=== PATIENT | male | born 1965 | race Caucasian/White ===

== ENCOUNTER 2019-12-23 22:34 | Inpatient (IN) | payer OTHER ==
[2019-12-23] MEDS ORDERED: Diltiazem HCl 125 MG, Admixture Fee 1 EACH in Sodium Chloride 0.9% 100 ML IVPB SCH (23:00)
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
[2019-12-23] MEDS ORDERED: Ondansetron PF 4 MG/2 ML Vial IVP PRN (23:49)
[2019-12-23] MEDS ORDERED: Ondansetron ODT 4 MG TAB PO PRN (23:49)
[2019-12-23] MEDS ORDERED: Acetaminophen 650 MG Suppository PR PRN (23:49)
[2019-12-23] MEDS ORDERED: Acetaminophen 325 MG TAB PO PRN (23:49)
[2019-12-24] MEDS ORDERED: Diltiazem 125 MG in Sodium Chloride 0.9% 100 ML IVPB SCH (00:15)
[2019-12-24] MEDS ORDERED: Lactated Ringer's 1,000 ML IV SCH ×2 (00:15→01:15)
[2019-12-24 00:17] LABS: Hemoglobin A1c 5.7 % (4.0-6.0)
[2019-12-24 00:31] LABS: Troponin I 0.026 ng/mL (< 0.028)
[2019-12-24 00:46] LABS: INR-International Normal Ratio 1.2; Prothrombin Time 14.9 sec (12.0-14.7)
[2019-12-24 00:47] LABS: PTT 39.2 sec (22.9-36.1)
[2019-12-24 01:00] LABS: Magnesium 2.1 mg/dL (1.6-2.6); Phosphorus 3.2 mg/dL (2.3-4.7)
[2019-12-24 04:58] LABS: #Lymphocytes 1.2 thou/uL (1.20-3.40); #Monocytes 0.2 thou/uL (0.11-0.59); #Neutrophils 4.8 thou/uL (1.40-6.50); %Basophils 0.1 % (0.0-1.0); %Eosinophils 0.2 % (0.0-10.0); %Lymphocytes 19.6 % (21.0-51.0); %Monocytes 3.3 % (0.0-10.0); %Neutrophils 76.7 % (42.0-75.0); Hemoglobin 14.7 g/dL (14.0-18.0); Mean Corpuscular HGB CONC 32.7 g/dL (32.0-36.0); Mean Corpuscular Hemoglobin 30.6 pg (27.0-31.0); Mean Corpuscular Volume 93.6 fL (78.0-98.0); Mean Platelet Volume 7.6 fL (7.4-10.4); Platelet Count 170 thou/uL (130-400); RBC Distribution Width 12.6 % (11.5-14.5); Red Blood Cell (RBC) Count 4.82 mill/uL (4.70-6.10); White Blood Cell (WBC) Count 6.2 thou/uL (4.8-10.8)
[2019-12-24 05:03] LABS: INR-International Normal Ratio 1.1; PTT 38.3 sec (22.9-36.1); Prothrombin Time 14.5 sec (12.0-14.7)
[2019-12-24 05:27] LABS: ALT (SGPT) 14 U/L (8-55); AST (SGOT) 47 U/L (5-34); Alkaline Phosphatase 61 U/L (40-110); Anion Gap 14 mmol/L (10-20); BUN (Urea Nitrogen) 18 mg/dL (8.4-25.7); Bilirubin, Total 0.4 mg/dL (0.2-1.2); Calc. Creatinine Clearance 173 mL/min (70-130); Calcium 8.2 mg/dL (7.8-10.44); Carbon Dioxide 20 mmol/L (22-29); Cardiac Risk 4.8 (Less than 4.5); Chloride 110 mmol/L (98-107); Cholesterol 130 mg/dl (< 200 Desired); Estimated GFR-MDRD Greater than 90; Globulin 3.1 g/dL (2.4-3.5); Glucose 109 mg/dL (70-105); HDL Cholesterol 27 mg/dL (>60 Neg Risk); LDL Cholesterol, Calculated 78 mg/dL; Potassium 3.7 mmol/L (3.5-5.1); Protein, Total 6.1 g/dL (6.0-8.3); Sodium 140 mmol/L (136-145); Triglycerides 125 mg/dL (Less than 150)
--- NOTE | 2019-12-24 06:42 | PDOC.FM ---
- Subjective Subjective: Endorses SOB, cough. COVID positive on Friday, currently at home but reports she is also getting worse. Walking back from the bathroom he had his oxygen unplugged and SpO2 at 80%, tachypneic. - Objective MAR Reviewed: Yes Vital Signs & Weight: Vital Signs (12 hours) Temp Pulse Resp BP Pulse Ox 12/24/19 03:13 98.4 F 70 16 92/58 L 96 12/24/19 00:45 97.9 F 86 97/62 94 L Weight Weight 107.048 kg Result Diagrams: 12/24/19 04:33 12/24/19 04:33 Phys Exam - Physical Examination In acute distress HEENT: sclera anicteric Neck: supple Respiratory: no wheezing, clear to auscultation bilateral irregularly irregular Gastrointestinal: soft Musculoskeletal: no edema Neurological: moves all 4 limbs Psychiatric: normal affect, A&O x 3 Skin: normal turgor Dx/Plan - Plan Plan: Atrial Fibrillation with RVR - HR 90's on Dilt at 5. - CHADSVASc score of 0. - A1c, FLP and TSH wnl - Echo pending - Continue Th Lovenox COVID-19 PUI - Symptomatic with known COVID + exposure (). CT chest with ground glass opacities. - COVID swab pending, drop precautions - Continue Azithromycin. Start Decadron - Trend D-dimer DVT Ppx: Th lovenox Addendum - Attending - Attending Attestation Date/Time: 12/24/19 1012 I personally evaluated the patient and discussed the management with Dr. Lua. I agree with the History, Examination, Assessment and Plan documented above with any addition or exceptions noted below.
[2019-12-24] MEDS ORDERED: Azithromycin 250 MG TAB PO SCH (09:00)
[2019-12-24] MEDS ORDERED: Dexamethasone 4 MG in Sodium Chloride 0.9% 50 ML SLOW IVP SCH ×2 (09:15→21:00)
[2019-12-24] MEDS ORDERED: Metoprolol Tartrate 25 MG TAB PO SCH ×2 (09:15→21:00)
[2019-12-24] MEDS ORDERED: guaiFENesin/DM ER PO SCH (10:30)
[2019-12-24 12:23] LABS: SARS-CoV-2 MS2 Positive; SARS-CoV-2 N Gene Positive; SARS-CoV-2 S Gene Positive; SARS-CoV-2 orf1ab Positive
--- NOTE | 2019-12-24 14:55 | PQF ---
CLINICAL DOCUMENTATION IMPROVEMENT CLARIFICATION FORM: ICD-10 Updated PLEASE DO AN ADDENDUM TO THE PROGRESS NOTE WITH ANY DOCUMENTATION UPDATES OR ADDITIONS AND CARRY THROUGH TO DC SUMMARY. THANK YOU. DATE: 12/24/19 ATTN: DR. PICKETT Please exercise your independent, professional judgment in responding to the clarification form. Clinical indicators are provided on the bottom of this form for your review Please check appropriate box(s): [x] Acute Respiratory Failure: [ x] with Hypoxia[ ] with Hypercapnia [ ] Acute On Chronic Respiratory Failure: [ ] with Hypoxia [ ] with Hypercapnia [ ] Acute Respiratory Failure due to: (etiology) [ ] ARDS (Acute Respiratory Distress Syndrome) [ ] Chronic Respiratory Failure only [ ] with Hypoxia [ ] with Hypercapnia [ ] Respiratory Insufficiency [ ] Hypoxia [ ] Other diagnosis [ ] Unable to determine In addition, please specify: Present on Admission (POA): [x ] Yes [ ] No [ ] Unable to determine For continuity of documentation, please document condition throughout progress notes and discharge summary. Thank You. CLINICAL INDICATORS - SIGNS / SYMPTOMS / LABS / RESULTS AND LOCATION IN MR ER NOTE: "HYPOXIC IN 80'S" RR 30 RISKS: COVID 19 (ER) AFIB (ER) H/O CIGAR SMOKING (ER) TREATMENT: SUPPLEMENTAL OXYGEN DECADRON (START 12/23) MUCINEX DM (START 12/23) Acute Respiratory Failure: ABG pH < 7.35 or > 7.45; Decreased oxygen saturation (<90% room air or < 95% on oxygen); PCO2 > 50 mm Hg; PO2 < 60 mm Hg; Labored or rapid respirations ARDS: Dx Criteria [[place] ARDS]: Respiratory symptoms within one week of a known clinical insult (e.g. shock, infection, surgery, trauma) Bilateral opacities in CXR/Chest CT not due to CHF or fluid (This form is maintained as a part of the permanent medical record) 2014 [employer]. All Rights Reserved [email or web address] Cell [facility]
[2019-12-24] MEDS ORDERED: Dextrose 50% Abboject 50 ML SYRINGE SLOW IVP PRN (17:50)
[2019-12-24] MEDS ORDERED: Dextrose 5% in Water 1,000 ML IV PRN (17:50)
[2019-12-24] MEDS ORDERED: HumaLOG 300 UNITS/3 ML VIAL SC PRN ×2 (17:50)
[2019-12-24] MEDS: Dexamethasone 4 mg/ml Vial SLOW IVP SCH (19:47)
[2019-12-24] MEDS: guaiFENesin/DM ER PO SCH (19:47)
[2019-12-24] MEDS ORDERED: Enoxaparin Sodium 100 MG/ML SYRINGE SC SCH (21:00)
[2019-12-25 04:58] LABS: INR-International Normal Ratio 1.1; PTT 32.4 sec (22.9-36.1); Prothrombin Time 13.8 sec (12.0-14.7)
[2019-12-25 04:59] LABS: D-Dimer Test 1.09 *mcg/mL (0.27-0.43)
--- NOTE | 2019-12-25 06:45 | PDOC.FM ---
- Subjective Subjective: No overnight events. COVID positive result yesterday. Reports improvement in SOB but yesterday her O2 was turned up to 6L. - Objective MAR Reviewed: Yes Vital Signs & Weight: Vital Signs (12 hours) Temp Pulse Resp BP Pulse Ox 12/25/19 03:35 97.9 F 74 28 H 103/73 93 L 12/24/19 23:00 97.6 F 86 26 H 118/77 90 L 12/24/19 20:05 98.5 F 94 20 117/76 94 L Weight Admit Weight 107.048 kg Weight 107.048 kg I&O: 12/23/19 12/24/19 12/25/19 06:59 06:59 06:59 Intake Total 298 Balance 298 Result Diagrams: 12/24/19 04:33 12/25/19 04:23 Phys Exam - Physical Examination Constitutional: NAD HEENT: moist MMs Neck: supple Respiratory: no wheezing, clear to auscultation bilateral Cardiovascular: RRR Gastrointestinal: soft Musculoskeletal: pulses present Neurological: moves all 4 limbs Psychiatric: normal affect, A&O x 3 Dx/Plan - Plan Plan: Atrial Fibrillation with RVR - HR 90's on Dilt at 5. - CHADSVASc score of 0. - A1c, FLP and TSH wnl - Echo pending - Continue Th Lovenox COVID-19 pneumonia - Continue isolation precautions - Continue Decadron. Will discontinue Azithromycin, low suspicion for bacterial pneumonia. - Trend D-dimer DVT Ppx: Th lovenox
[2019-12-25 07:31] LABS: ALT (SGPT) 16 U/L (8-55); AST (SGOT) 47 U/L (5-34); Albumin 3.1 g/dL (3.5-5.0); Alkaline Phosphatase 64 U/L (40-110); Anion Gap 13 mmol/L (10-20); BUN (Urea Nitrogen) 16 mg/dL (8.4-25.7); Bilirubin, Total 0.4 mg/dL (0.2-1.2); Calc. Creatinine Clearance 186 mL/min (70-130); Carbon Dioxide 22 mmol/L (22-29); Chloride 109 mmol/L (98-107); Estimated GFR-MDRD Greater than 90; Globulin 3.6 g/dL (2.4-3.5); Glucose 134 mg/dL (70-105); Protein, Total 6.7 g/dL (6.0-8.3); Sodium 140 mmol/L (136-145)
[2019-12-25] MEDS: Enoxaparin Sodium 100 MG/ML SYRINGE SC SCH ×2 (08:00→20:13)
[2019-12-25] MEDS: guaiFENesin/DM ER PO SCH ×2 (08:00→20:13)
[2019-12-25] MEDS: Metoprolol Tartrate 25 MG TAB PO SCH ×2 (08:00→20:13)
[2019-12-25] MEDS: Dexamethasone 4 mg/ml Vial SLOW IVP SCH ×2 (08:01→20:13)
[2019-12-25] MEDS ORDERED: Non-Formulary Item 1 EACH in Sodium Chloride 0.9% 250 ML 210 ML IV SCH (08:45)
[2019-12-25] MEDS ORDERED: Azithromycin 250 MG TAB PO SCH (09:00)
--- NOTE | 2019-12-25 11:38 | PRG ---
DATE OF SERVICE: 12/25/2019 I was cut off last time, but the gentleman is probably a good candidate for antivirals right now. We got his pulse controlled with atrial fibrillation. He is on dexamethasone 4 mg IV twice daily. He is on the diltiazem that is controlling his pulse right now. His azithromycin is what we can stop and sodium beta-marvin. Echocardiogram has been ordered, unclear if it will be done with his COVID status currently. He is on Lovenox currently. At this point in time, we are going to watch him as far as respiratory status goes and we will keep following some of his inflammatory markers as far as his COVID infection goes. His initial CRP was elevated at 28. LDH was 548 and ferritin was 1691, so he may be a good candidate for the antivirals. Job ID: [id number]
--- NOTE | 2019-12-25 12:03 | PRG ---
DATE OF SERVICE: 12/25/2019 Please see the note from Dr. Tesha Lua, for which I agree. The patient was seen, evaluated, discussed and examined with the residents by bedside. This gentleman came in with atrial fibrillation with rapid ventricular response. COVID-19 positive, was needing upwards of 6 L to keep his oxygen level, doing okay and now at 6 L, he is doing fairly well. His liver function tests look okay. Okay kidney function, and these are fairly new respiratory symptoms, so may be a good candidate for remdesivir . Job ID: [id number]
--- NOTE | 2019-12-25 17:32 | CON ---
DATE OF CONSULTATION: 12/25/2019 CHIEF COMPLAINT: Shortness of breath, COVID. HISTORY OF PRESENT ILLNESS: The patient is a 54-year-old male, who developed increasing shortness of breath, fever, cough, and diarrhea approximately 5 days prior to admission. He was seen on outpatient basis by his primary care physician, who prescribed albuterol. He has a known COVID exposure due to his who has been previously diagnosed. Because of increasing shortness of breath, he presented to the [place]. He was found to have atrial fib with rapid response. He was febrile to 103.3 and was tachypneic and noted to have a saturation of approximately 90% on room air. CAT scan showed ground-glass opacifications without evidence of pulmonary embolus. He received Lovenox subcu, Cardizem IV, and was placed on empiric antibiotic therapy. He is subsequently transferred and admitted here. He has had a COVID test, which now returns positive. Pulmonary Service is consulted regarding initiation of remdesivir. SOCIAL HISTORY: The patient is a 54-year-old gentleman. He has no medication allergies. He is recently placed on albuterol, but otherwise takes no medication. PAST MEDICAL HISTORY: Negative for diabetes, heart disease, kidney or liver disease. He has no history of asthma, tuberculosis, or COPD. He is mildly overweight with a BMI of 32. FAMILY HISTORY: Remarkable for COVID positive status in his . REVIEW OF SYSTEMS: Remarkable as above. PHYSICAL EXAMINATION: VITAL SIGNS: Blood pressure 118/75, saturation 92% on 5 L nasal cannula with respiratory rate of 29, heart rate is 88, and he is currently afebrile. GENERAL: He is mildly tachypneic with some increased work of breathing. He has no oral Kortney. He has no adenopathy or JVD. LUNGS: Bilateral bronchial breath sounds, which do not improve, and are greater in the posterior and basilar lung zones. HEART: Regular rate and rhythm. ABDOMEN: Soft. There is no organomegaly. He has no edema. LABORATORY DATA: White count 6200, hemoglobin is 14.7 with hematocrit of 45.1, and platelet count of 170,000. PT and PTT today are normal. His electrolytes include sodium 140, potassium 4.0, chloride 109, CO2 is 22, BUN 16, creatinine 0.7. Liver tests are within normal limits. His COVID test is negative. His x-ray reports from [facility] have been reviewed as above. IMPRESSION: 1. COVID pneumonia, the patient has a family exposure, now presents with increasing shortness of breath requiring supplemental oxygen. He does not have a contraindication to remdesivir. 2. Atrial fibrillation with rapid response, presumed reactive to above. PLAN: The patient meets criteria for use of remdesivir. He does not yet require intubation, but we will continue to observe closely. Additional intervention will be based on his clinical course. Thank you for this consultation. Job ID: [id number]
[2019-12-25 19:48] LABS: Hemoglobin 15.8 g/dL (14.0-18.0); Platelet Count 286 thou/uL (130-400)
[2019-12-26 04:54] LABS: PTT 34.4 sec (22.9-36.1); Prothrombin Time 13.5 sec (12.0-14.7)
[2019-12-26 05:16] LABS: ALT (SGPT) 37 U/L (8-55); AST (SGOT) 73 U/L (5-34); Albumin 2.9 g/dL (3.5-5.0); Alkaline Phosphatase 65 U/L (40-110); Anion Gap 12 mmol/L (10-20); BUN (Urea Nitrogen) 21 mg/dL (8.4-25.7); Bilirubin, Total 0.2 mg/dL (0.2-1.2); Calc. Creatinine Clearance 178 mL/min (70-130); Calcium 8.6 mg/dL (7.8-10.44); Carbon Dioxide 23 mmol/L (22-29); Chloride 110 mmol/L (98-107); Estimated GFR-MDRD Greater than 90; Globulin 3.5 g/dL (2.4-3.5); Glucose 145 mg/dL (70-105); Protein, Total 6.4 g/dL (6.0-8.3); Sodium 141 mmol/L (136-145)
--- NOTE | 2019-12-26 07:02 | PDOC.FM ---
- Subjective Subjective: No overnight events. He is currently comfortable on 6L NC. Tolerating PO. Started Remdesivir yesterday evening. He is interested in receiving convalescent plasma. - Objective MAR Reviewed: Yes Vital Signs & Weight: Vital Signs (12 hours) Temp Pulse Resp BP Pulse Ox 12/26/19 03:53 97.8 F 72 30 H 117/74 95 12/25/19 23:45 97.7 F 79 14 111/85 94 L 12/25/19 20:20 97.3 F L 89 31 H 112/76 94 L Weight Admit Weight 107.048 kg Weight 107.048 kg I&O: 12/25/19 12/26/19 12/27/19 06:59 06:59 06:59 Intake Total 298 893 Balance 298 893 Result Diagrams: 12/25/19 19:14 12/26/19 04:21 Phys Exam - Physical Examination Constitutional: NAD HEENT: moist MMs Neck: supple Respiratory: no wheezing, clear to auscultation bilateral irregularly irregular. Rate controlled. Gastrointestinal: soft, non-tender Neurological: moves all 4 limbs Psychiatric: normal affect, A&O x 3 Skin: no rash Dx/Plan - Plan Plan: Atrial Fibrillation with RVR, resolved - Currently in Afib rate controlled. Likely 2/2 COVID. Telemetry reviewed. - Weaned from Dilt gtt. Continue Metoprolol 25mg BID - CHADSVASc score of 0. - A1c, FLP and TSH wnl - Echo pending, will likely not be taken due to COVID + - Continue Th Lovenox COVID-19 pneumonia - Continue isolation precautions - Continue Decadron, Remdesivir - Starting process for convalescent plasma - Trend D-dimer - Monitor respiratory status and wean O2 as tolerated DVT ppx: Th lovenox
[2019-12-26] MEDS: guaiFENesin/DM ER PO SCH ×2 (08:46→20:20)
[2019-12-26] MEDS: Dexamethasone 4 mg/ml Vial SLOW IVP SCH ×2 (08:46→20:20)
[2019-12-26] MEDS: Metoprolol Tartrate 25 MG TAB PO SCH ×2 (08:47→20:20)
[2019-12-26] MEDS: Enoxaparin Sodium 100 MG/ML SYRINGE SC SCH ×2 (08:47→20:20)
[2019-12-26] MEDS: Non-Formulary Item 1 EACH in Sodium Chloride 0.9% 250 ML 230 ML IV SCH (08:47)
--- NOTE | 2019-12-26 10:18 | EKG ---
Test Reason : Blood Pressure : / mmHG Vent. Rate : 102 BPM Atrial Rate : 340 BPM P-R Int : 000 ms QRS Dur : 084 ms QT Int : 346 ms P-R-T Axes : 000 056 003 degrees QTc Int : 450 ms Atrial fibrillation with rapid ventricular response with premature ventricular or aberrantly conducte d complexes Abnormal ECG Confirmed by RADHA HUGGINS ([id number]), visual effects editor SARAH KULKARNI ([id number]) on 12/26/2019 10:17:48 AM Referred By: Confirmed By:RADHA HUGGINS
--- NOTE | 2019-12-26 15:48 | PRG ---
DATE OF SERVICE: Please see the note from Dr. Tesha Lua for which I agree. The patient was seen, evaluated, discussed, and examined with residents at bedside. Generally speaking, fairly stable. His atrial fibrillation is controlled with p.o. metoprolol only. He is starting to need a little higher dose of little bit concerning. He complaining of too much increase in shortness of breath, but is on I believe high-frequency nasal cannula. Chest is fairly clear. The rest of the exam is fairly normal. The patient is on remdesivir daily and talk to Infectious Disease and Pulmonary about the possibility of getting him on plasma treatment as well. We discussed at length with the patient. Job ID: [id number]
--- NOTE | 2019-12-26 16:44 | PRG ---
DATE OF SERVICE: 12/26/2019 SUBJECTIVE: Mr. Pompa continues subjective improvement. He is ambulatory in his room. He has tolerated reduction in oxygen now to 3 L nasal cannula. He has asked about convalescent serum. OBJECTIVE: VITAL SIGNS: He is currently afebrile. Blood pressure 120/86, saturation 94 on 4 L. He is alert and oriented. LUNGS: Show bilateral rhonchi without wheezing as much distress as he was previously. HEART: Regular rate and rhythm. LABORATORY DATA: He has no CBC today. Electrolytes show BUN 21 and creatinine 0.7. His AST is up slightly, but ALT is normal as his alkaline phosphatase and bilirubin. IMPRESSION: COVID pneumonia, improving on Remdesivir. RECOMMENDATION: We will continue Remdesivir therapy. Based on my assessment of convalescent plasma criteria, the patient is improving from an oxygen perspective and does not appear to meet inclusion criteria. Job ID: [id number]
[2019-12-27 04:40] LABS: INR-International Normal Ratio 1.1; PTT 33.9 sec (22.9-36.1); Prothrombin Time 14.1 sec (12.0-14.7)
[2019-12-27 04:41] LABS: D-Dimer Test 0.53 *mcg/mL (0.27-0.43)
[2019-12-27 05:00] LABS: ALT (SGPT) 34 U/L (8-55); AST (SGOT) 52 U/L (5-34); Albumin 2.8 g/dL (3.5-5.0); Alkaline Phosphatase 63 U/L (40-110); Anion Gap 13 mmol/L (10-20); BUN (Urea Nitrogen) 22 mg/dL (8.4-25.7); Bilirubin, Total 0.4 mg/dL (0.2-1.2); Calc. Creatinine Clearance 169 mL/min (70-130); Calcium 8.6 mg/dL (7.8-10.44); Carbon Dioxide 23 mmol/L (22-29); Chloride 107 mmol/L (98-107); Estimated GFR-MDRD Greater than 90; Glucose 136 mg/dL (70-105); Potassium 4.3 mmol/L (3.5-5.1); Protein, Total 6.8 g/dL (6.0-8.3); Sodium 139 mmol/L (136-145)
--- NOTE | 2019-12-27 07:33 | PDOC.FM ---
- Subjective Subjective: No overnight events, no complaints. He is currently comfortable on 3L NC (down from high of 6L). He does desaturate to 80s when walking but quickly recovers with rest. Tolerating PO. Convalescent plasma given earlier this morning. - Objective MAR Reviewed: Yes Vital Signs & Weight: Vital Signs (12 hours) Temp Pulse Pulse Resp BP BP Pulse Ox 12/27/19 04:32 97.9 F 88 22 H 124/77 95 12/27/19 03:19 97.6 F 82 22 H 117/78 98 12/27/19 03:04 97.9 F 87 26 H 127/91 H 94 L 12/27/19 00:20 97.6 F 90 20 118/75 93 L 12/26/19 20:20 97.7 F 84 18 128/77 98 Weight Admit Weight 107.048 kg Weight 107.048 kg I&O: 12/26/19 12/27/19 12/28/19 06:59 06:59 06:59 Intake Total 893 1240 Balance 893 1240 Result Diagrams: 12/25/19 19:14 12/28/19 04:15 Phys Exam - Physical Examination Constitutional: NAD (exam per Dr. Buckner) HEENT: moist MMs Neck: supple Respiratory: no wheezing, clear to auscultation bilateral Cardiovascular: RRR, no significant murmur Gastrointestinal: no distention Musculoskeletal: no edema, pulses present Neurological: non-focal, moves all 4 limbs Psychiatric: normal affect, A&O x 3 Skin: no rash, normal turgor Dx/Plan (1) Atrial fibrillation with RVR Code(s): I48.91 - UNSPECIFIED ATRIAL FIBRILLATION Status: Acute (2) Person under investigation for COVID-19 Code(s): Z20.828 - CONTACT W AND EXPOSURE TO OTH VIRAL COMMUNICABLE DISEASES Status: Acute - Plan Plan: Patient is a 54 yo male who presents in AFib with RVR is admitted to Telemetry : #Atrial Fibrillation with RVR, resolved - Currently in Afib rate controlled. Likely 2/2 COVID. Telemetry reviewed. - Weaned from Dilt gtt. Continue Metoprolol 25mg BID - CHADSVASc score of 0. - A1c, FLP and TSH wnl - Echo pending, will likely not be taken due to COVID + - Continue Th Lovenox #COVID-19 pneumonia - Continue isolation precautions - Continue Decadron, Remdesivir -will plan to transition to PO Decadron tomorrow (Dosing per Recovery trial) - Convalescent plasma given 12/26 @ 0300 - Trend D-dimer: 1.59 > 0.64 > 0.53 - Monitor respiratory status and wean O2 as tolerated DVT ppx: Th lovenox Diet: Regular Code status: FULL Dispo: Stable, admitted to inpatient on COVID unit. Improving today. Continue to monitor respiratory status. Anticipate discharge in <48 hours. Addendum - Attending - Attending Attestation Date/Time: 12/27/19 7754 I personally evaluated the patient and discussed the management with Dr. Ulloa I agree with the History, Examination, Assessment and Plan documented above with any addition or exceptions noted below - Patient without complaints. Feeling better. SOB improving. Afebrile VSS. A/P: 1) COVID pneumonia - on 3LNC; wean O2 as tolerated. Continue remdesivir. 2) Afib with RVR - resolved; continue to monitor.
--- NOTE | 2019-12-27 08:21 | PRG ---
DATE OF SERVICE: 12/26/2019 ADDENDUM: I was contacted last evening regarding patient's participation in the convalescent serum study. I had noted on my note that I felt the patient did not meet inclusion criteria. After reviewing study criteria with the supervising physician, it is pointed out that any oxygen demand is qualifying criteria and not a specific oxygen demand or specific oxygen use/demand trend. As such, the patient does meet inclusion criteria and I retract my statement that he does not meet inclusion criteria. It was my understanding that the patient was going to be enrolled and medication administered following my conversation and consent. Job ID: [id number] MTDD
[2019-12-27] MEDS: Non-Formulary Item 1 EACH in Sodium Chloride 0.9% 250 ML 230 ML IV SCH (09:26)
[2019-12-27] MEDS: Dexamethasone 4 mg/ml Vial SLOW IVP SCH ×2 (09:27→19:45)
[2019-12-27] MEDS: Metoprolol Tartrate 25 MG TAB PO SCH ×2 (09:27→19:45)
[2019-12-27] MEDS: Enoxaparin Sodium 100 MG/ML SYRINGE SC SCH ×2 (09:27→19:45)
[2019-12-27] MEDS: guaiFENesin/DM ER PO SCH ×2 (09:30→19:45)
--- NOTE | 2019-12-27 12:49 | PRG ---
DATE OF SERVICE: 12/27/2019 SUBJECTIVE: Pipe Pompa is a 54-year-old morbidly obese gentleman. OBJECTIVE: VITAL SIGNS: Temperature 98, pulse 105, respirations 20, saturations 90% on 3 L. GENERAL: Less short of breath. CHEST: Reveals no wheezing or crackles. CARDIAC: Normal S1 and S2. No gallops. ABDOMEN: No masses. IMPRESSION: 1. Coronavirus positive pneumonia. Minimal infiltrate in the base. 2. Respiratory failure, relatively stable. PLAN: Switch him over to oral prednisone, doxycycline. If he has not had convalescent plasma, he would benefit from it. He probably can be discharged home in the next 24 to 48 hours. Job ID: [id number]
[2019-12-27] MEDS: Doxycycline 100 MG CAP PO SCH (19:45)
[2019-12-28 05:04] LABS: INR-International Normal Ratio 1.1; Prothrombin Time 14.6 sec (12.0-14.7)
[2019-12-28 05:06] LABS: D-Dimer Test 0.68 *mcg/mL (0.27-0.43)
[2019-12-28 05:18] LABS: ALT (SGPT) 47 U/L (8-55); AST (SGOT) 57 U/L (5-34); Albumin 2.8 g/dL (3.5-5.0); Alkaline Phosphatase 67 U/L (40-110); Anion Gap 11 mmol/L (10-20); BUN (Urea Nitrogen) 21 mg/dL (8.4-25.7); Bilirubin, Total 0.3 mg/dL (0.2-1.2); Calc. Creatinine Clearance 169 mL/min (70-130); Calcium 8.3 mg/dL (7.8-10.44); Carbon Dioxide 26 mmol/L (22-29); Chloride 106 mmol/L (98-107); Estimated GFR-MDRD Greater than 90; Globulin 3.1 g/dL (2.4-3.5); Glucose 132 mg/dL (70-105); Potassium 3.9 mmol/L (3.5-5.1); Protein, Total 5.9 g/dL (6.0-8.3); Sodium 139 mmol/L (136-145)
--- NOTE | 2019-12-28 07:38 | PDOC.FM ---
- Subjective Subjective: Patient doing well this morning. States that he still has some shortness of breath with walking around in the room. He still needs Remdesevir today and tomorrow. Patient okay with plan that he may have to go home with O2 in the short term. - Objective MAR Reviewed: Yes Vital Signs & Weight: Vital Signs (12 hours) Temp Pulse Resp BP Pulse Ox 12/28/19 03:18 97.7 F 69 20 128/83 94 L 12/27/19 19:50 97.6 F 87 26 H 125/85 96 Weight Admit Weight 107.048 kg Weight 107.048 kg I&O: 12/27/19 12/28/19 12/29/19 06:59 06:59 06:59 Intake Total 1240 1230 Balance 1240 1230 Result Diagrams: 12/28/19 10:55 12/28/19 04:15 Phys Exam - Physical Examination Constitutional: NAD HEENT: moist MMs Neck: no JVD, supple Respiratory: no wheezing, clear to auscultation bilateral Cardiovascular: RRR, no significant murmur Gastrointestinal: soft, no distention Musculoskeletal: no edema, pulses present Neurological: normal sensation, moves all 4 limbs Psychiatric: normal affect, A&O x 3 Skin: no rash, normal turgor Dx/Plan (1) Atrial fibrillation with RVR Code(s): I48.91 - UNSPECIFIED ATRIAL FIBRILLATION Status: Acute (2) Person under investigation for COVID-19 Code(s): Z20.828 - CONTACT W AND EXPOSURE TO OTH VIRAL COMMUNICABLE DISEASES Status: Acute - Plan Plan: Patient is a 54 yo male who presents in AFib with RVR is admitted to Telemetry: #Atrial Fibrillation with RVR, resolved - Currently in Afib rate controlled. Likely 2/2 COVID. Telemetry reviewed. - Weaned from Dilt gtt. Continue Metoprolol 25mg BID - CHADSVASc score of 0. - A1c, FLP and TSH wnl - Echo pending, will likely not be taken due to COVID + - Continue Th Lovenox #COVID-19 pneumonia - Continue isolation precautions - Continue Decadron, Remdesivir through December 28 -will plan to transition to PO Decadron today (Dosing 6mg daily per Recovery trial) - Convalescent plasma given 12/26 @ 0300 - Trend D-dimer: 1.59 > 0.64 > 0.53 > 0.68 - Monitor respiratory status and wean O2 as tolerated - CRP and Ferritin trending down DVT ppx: Th lovenox Diet: Regular Code status: FULL Dispo: Stable, admitted to inpatient on COVID unit. Improving today. Continue to monitor respiratory status. Anticipate discharge in next 48 hours. Addendum - Attending - Attending Attestation Date/Time: 12/28/19 5610 I personally evaluated the patient and discussed the management with Dr. Ulloa I agree with the History, Examination, Assessment and Plan documented above with any addition or exceptions noted below - Patient denies any complaints. SOB and cough improved. Afebrile VSS. A/P: 1) Acute hypoxic resp failure secondary to COVID pneumonia - improving; wean O2 as tolerated. Final dose of remdesivir tomorrow. Anticipate d/c home soon. 2) Afib with RVR- stable.
[2019-12-28] MEDS: Non-Formulary Item 1 EACH in Sodium Chloride 0.9% 250 ML 230 ML IV SCH (09:56)
[2019-12-28] MEDS: Enoxaparin Sodium 100 MG/ML SYRINGE SC SCH ×2 (09:57→21:00)
[2019-12-28] MEDS: Dexamethasone 4 MG TAB PO SCH (09:58)
[2019-12-28] MEDS: Doxycycline 100 MG CAP PO SCH ×2 (09:58→21:00)
[2019-12-28] MEDS: Metoprolol Tartrate 25 MG TAB PO SCH ×2 (10:00→21:00)
[2019-12-28] MEDS: guaiFENesin/DM ER PO SCH ×2 (10:00→21:00)
[2019-12-28 11:35] LABS: Hemoglobin 16.3 g/dL (14.0-18.0); Platelet Count 350 thou/uL (130-400)
--- NOTE | 2019-12-28 11:56 | PRG ---
DATE OF SERVICE: 12/28/2019 OBJECTIVE: VITAL SIGNS: A 54-year-old gentleman whose saturations are 94% on 3 L, respiratory rate 27, pulse 87, blood pressure 120/83. CHEST: No wheezing or crackles. CARDIAC: Normal S1. ABDOMEN: No masses. LABORATORY DATA: All his numbers are getting better. Ferritin is 620. D-dimer is 0.68. ASSESSMENT: 1. Coronavirus positive bronchopneumonia. 2. Respiratory failure, much improved. Can probably switch him over to p.o. prednisone. Already on doxycycline. Baseline chest x-ray. If his saturations remain stable on low-flow O2, he will be discharged to home any time. Job ID: [id number]
--- NOTE | 2019-12-28 14:15 | RAD ---
Chest AP view INDICATION: Pneumonia COMPARISON: December 23, 2019 FINDINGS: Lungs: There is bilateral airspace disease that has progressed from the prior exam. Cardiac silhouette: The cardiomediastinal silhouette appears within normal limits. Pulmonary vasculature: Normal Pleural spaces: No pleural effusion or pneumothorax is demonstrated. Upper abdomen: No abnormality seen. Osseous structures: No acute osseous abnormality. Additional findings: None. IMPRESSION: Bilateral airspace disease consistent with worsening pneumonia.
[2019-12-29 03:53] VITALS: BMI 30.7
[2019-12-29 05:10] LABS: INR-International Normal Ratio 1.1; Prothrombin Time 14.3 sec (12.0-14.7)
[2019-12-29 05:11] LABS: PTT 34.7 sec (22.9-36.1)
[2019-12-29 05:12] LABS: D-Dimer Test 0.73 *mcg/mL (0.27-0.43)
[2019-12-29 05:20] LABS: ALT (SGPT) 40 U/L (8-55); AST (SGOT) 32 U/L (5-34); Albumin 2.8 g/dL (3.5-5.0); Alkaline Phosphatase 66 U/L (40-110); Anion Gap 10 mmol/L (10-20); BUN (Urea Nitrogen) 24 mg/dL (8.4-25.7); Bilirubin, Total 0.4 mg/dL (0.2-1.2); Calc. Creatinine Clearance 160 mL/min (70-130); Calcium 8.3 mg/dL (7.8-10.44); Carbon Dioxide 24 mmol/L (22-29); Chloride 105 mmol/L (98-107); Estimated GFR-MDRD Greater than 90; Globulin 3.1 g/dL (2.4-3.5); Glucose 99 mg/dL (70-105); Protein, Total 5.9 g/dL (6.0-8.3); Sodium 135 mmol/L (136-145)
[2019-12-29] MEDS: guaiFENesin/DM ER PO SCH ×2 (08:31→20:22)
[2019-12-29] MEDS: Doxycycline 100 MG CAP PO SCH ×2 (08:31→20:23)
[2019-12-29] MEDS: Enoxaparin Sodium 100 MG/ML SYRINGE SC SCH ×2 (08:31→20:23)
[2019-12-29] MEDS: Dexamethasone 4 MG TAB PO SCH (08:31)
[2019-12-29] MEDS: Metoprolol Tartrate 25 MG TAB PO SCH ×3 (08:31→20:23)
--- NOTE | 2019-12-29 09:20 | PDOC.FM ---
- Subjective Subjective: Patient doing well this morning, has been on room air for past 2 days. Had walking test x 2, 1st trial had desat to 88%, but 2nd trial desat to just 92%. Was approved for home O2 with orders signed yesterday afternoon. Patient is due to receive last dose of Remdesevir today. Currently patient has no complaints. Discussed follow up with patient this morning, he will plan to schedule a phone visit with [facility]. - Objective MAR Reviewed: Yes Vital Signs & Weight: Vital Signs (12 hours) Temp Pulse Resp BP Pulse Ox 12/29/19 08:49 97.8 F 63 28 H 103/67 92 L 12/29/19 03:40 98.0 F 74 14 123/90 93 L 12/28/19 23:57 92 L Weight Admit Weight 107.048 kg Weight 102.829 kg I&O: 12/28/19 12/29/19 12/30/19 06:59 06:59 06:59 Intake Total 1230 2310 Balance 1230 2310 Result Diagrams: 12/28/19 10:55 12/29/19 04:34 Phys Exam - Physical Examination Constitutional: NAD HEENT: moist MMs, sclera anicteric Neck: no JVD, supple, full ROM Respiratory: no wheezing, clear to auscultation bilateral Cardiovascular: RRR, no significant murmur Gastrointestinal: soft, no distention Musculoskeletal: no edema, pulses present Neurological: non-focal, normal sensation, moves all 4 limbs Psychiatric: normal affect, A&O x 3 Skin: no rash, normal turgor Dx/Plan (1) Atrial fibrillation with RVR Code(s): I48.91 - UNSPECIFIED ATRIAL FIBRILLATION Status: Acute (2) Person under investigation for COVID-19 Code(s): Z20.828 - CONTACT W AND EXPOSURE TO OTH VIRAL COMMUNICABLE DISEASES Status: Acute - Plan Plan: Patient is a 54 yo male who presents in AFib with RVR is admitted to Telemetry: #Atrial Fibrillation with RVR, resolved - Currently in NSR. - AFib Likely 2/2 COVID. Telemetry reviewed. - Weaned from Dilt gtt. Continue Metoprolol 25mg BID - CHADSVASc score of 0. - A1c, FLP and TSH wnl - Echo pending, will likely not be taken due to COVID + - Continue Th Lovenox #COVID-19 pneumonia - Continue isolation precautions - Continue Decadron, Remdesivir through December 28 -continue PO Decadron (Dosing 6mg daily per Recovery trial) - Convalescent plasma given 12/26 @ 0300 - Trend D-dimer: 1.59 > 0.64 > 0.53 > 0.68 - Monitor respiratory status, currently on room air - CRP and Ferritin trending down DVT ppx: Th lovenox Diet: Regular Code status: FULL Dispo: Stable, admitted to inpatient on COVID unit. Improving today. Continue to monitor respiratory status. Anticipate discharge later today after receiving last dose of Remdesevir. Addendum - Attending - Attending Attestation Date/Time: 12/29/19 1412 I personally evaluated the patient and discussed the management with Dr. Ulloa I agree with the History, Examination, Assessment and Plan documented above with any addition or exceptions noted below - Patient feeling well. Denies any complaints. Afebrile VSS. A/P: 1) Acute hypoxic resp failure due to COVID 19 pneumonia - improved; stable for discharge; completed remdesevir today. D/c home with home O2. 2) Afib with RVR - resolved.
[2019-12-29] MEDS: Non-Formulary Item 1 EACH in Sodium Chloride 0.9% 250 ML 230 ML IV SCH (10:44)
--- NOTE | 2019-12-29 11:35 | PRG ---
DATE OF SERVICE: SUBJECTIVE: Pipe Pompa is a 54-year-old gentleman. OBJECTIVE: VITAL SIGNS: Temperature 98, pulse 75, respiratory rate 18, sats are 92 on room air, and blood pressure 119/79. CHEST: No wheezing or crackles. CARDIAC: Normal S1 and S2. No gallops. ABDOMEN: No masses. IMAGING DATA: X-ray taken yesterday shows still bilateral peripheral infiltrates. ASSESSMENT: 1. Coronavirus positive pneumonia. 2. Respiratory failure, improved. 3. Hypoxemia, better. If the patient is stable without any low-flow O2, could be discharged home. Decadron to p.o. prednisone. Job ID: [id number]
--- NOTE | 2019-12-29 21:07 | DIS ---
DATE OF ADMISSION: 12/23/2019 DATE OF DISCHARGE: 12/29/2019 RESIDENT: Miracle Ulloa DO. ADMITTING ATTENDING: Johanna Ashraf MD DISCHARGE ATTENDING: Awa Buckner MD CONSULT: Pulmonology. PROCEDURES: 1. EKG on December 23, 2019: Atrial fibrillation with RVR at rate of 102 beats per minute with occasional PVCs, read by Dr. Lakhani. 2. Chest x-ray on December 23, 2019: Suboptimal inspiration. Questionable minimally asymmetric markings along the left heart border. This could possibly represent some early ground-glass infiltrate. 3. Chest CT on December 23, 2019: Ground-glass opacities in both lung maynard, which are compatible with COVID pneumonia. 4. Chest x-ray on December 28, 2019: Bilateral airspace disease, consistent with pneumonia. PRIMARY DIAGNOSIS: Acute hypoxic respiratory failure secondary to COVID-19 pneumonia. SECONDARY DIAGNOSES: 1. COVID-19 positive. 2. Atrial fibrillation with RVR, now resolved. DISCHARGE MEDICATIONS: 1. Metoprolol tartrate 25 mg p.o. b.i.d. 2. Doxycycline 100 mg p.o. b.i.d. for eight additional days. DISCONTINUED MEDICATIONS: None. HISTORY OF PRESENT ILLNESS AND HOSPITAL COURSE: The patient is a 54-year-old male with no past medical history, who presented to the [facility] on December 23, 2019, as a transfer from [facility]. When he presented there, he was in atrial fibrillation with RVR and had a known COVID exposure. The patient reported symptoms of shortness of breath, fever at home, cough, chills, and diarrhea that had started approximately on December 17. He had become more short of breath, which prompted him to go to the ER. The patient's was recently diagnosed with COVID positive, but was able to manage symptoms at home. The patient's PCP had prescribed him an albuterol inhaler earlier in the week due to his symptoms. In the [facility], the patient was found to have a heart rate ranging from 131 to 190, respirations 28 to 34, and oxygen saturation of 90% to 93% on room air. He also had a fever of 103.[address] a chest CT which showed ground-glass opacities. In the [facility], the patient was given 100 mg of Lovenox, started on diltiazem IV drip, 2 g of cefepime, 1000 mg of Tylenol, 800 mg of ibuprofen, and a 1 L normal saline bolus. The patient was admitted to the COVID Unit and placed on telemetry. Initially, the patient's respiratory status continued to worsen, requiring a max oxygen requirement of 6 L O2 via nasal cannula on days 2, 3, and 4 of admission. On December 26, 2019 , the patient's oxygen requirement lowered to 3 L via nasal cannula. On December 27, he was able to be weaned off oxygen with saturations around 92% to 95% on room air. The patient still had some desaturation and shortness of breath while walking around his room with desaturation to 88%. Home oxygen was ordered and was able to be arranged for the patient to have oxygen at home upon discharge. The patient became rate controlled on diltiazem drip and diltiazem drip was stopped on December 25 and he remained in normal sinus rhythm thereafter. His metoprolol was increased to 25 mg b.i.d. During the patient's stay, he did receive a five day course of remdesivir. He was also on Decadron initially at 4 mg IV b.i.d. for December 22 through December 26, he was transitioned to p.o. dosing of 6 mg daily for December 27 and December 28. The patient also received therapeutic Lovenox dosing b.i.d. The patient initially received two doses of azithromycin before it was later discontinued. The patient was started on doxycycline for a 10-day course by Pulmonology, Dr. Flores. The patient was stable for discharge to home on the evening of December 29, 2019. He had portable oxygen delivered to the hospital before leaving. DISPOSITION: Stable. DISCHARGE INSTRUCTIONS: 1. Location: Home. 2. Diet: Regular. 3. Activity: As tolerated. 4. Follow up with [facility] in 3 to 5 days to establish care and for hospital followup. The patient will need referral for outpatient Cardiology. Job ID: [id number]
[2019-12-30 05:23] LABS: INR-International Normal Ratio 1.1; PTT 39.1 sec (22.9-36.1); Prothrombin Time 13.7 sec (12.0-14.7)
[2019-12-30 05:24] LABS: D-Dimer Test 0.72 *mcg/mL (0.27-0.43)
[2019-12-30 05:45] LABS: ALT (SGPT) 30 U/L (8-55); AST (SGOT) 21 U/L (5-34); Albumin 2.9 g/dL (3.5-5.0); Alkaline Phosphatase 73 U/L (40-110); Anion Gap 11 mmol/L (10-20); BUN (Urea Nitrogen) 21 mg/dL (8.4-25.7); Bilirubin, Total 0.3 mg/dL (0.2-1.2); Calc. Creatinine Clearance 162 mL/min (70-130); Calcium 8.3 mg/dL (7.8-10.44); Carbon Dioxide 24 mmol/L (22-29); Chloride 105 mmol/L (98-107); Estimated GFR-MDRD Greater than 90; Globulin 3.1 g/dL (2.4-3.5); Glucose 91 mg/dL (70-105); Potassium 4.1 mmol/L (3.5-5.1); Sodium 136 mmol/L (136-145)
[2019-12-30] MEDS: Doxycycline 100 MG CAP PO SCH (07:59)
[2019-12-30] MEDS: Metoprolol Tartrate 25 MG TAB PO SCH (07:59)
[2019-12-30] MEDS: guaiFENesin/DM ER PO SCH (07:59)
[2019-12-30] MEDS ORDERED: predniSONE 20 MG TAB PO SCH (08:00)
[2019-12-30] MEDS: Enoxaparin Sodium 100 MG/ML SYRINGE SC SCH (08:00)
[2019-12-30 08:17] VITALS: BP 134/76; TEMP 98
== END 2019-12-30 09:40 | disposition home or self-care (01) | DRG 177 ==
LOC: ERS 22:34 → 2SW 23:46
PROVIDERS: ADMIT Student in an Organized Health Care Education/Training Program; ATTEND Student in an Organized Health Care Education/Training Program
PROC: 8E0ZXY6 Isolation (ICD-10-PCS; principal; 2019-12-23)
PROC: 30233L1 Transfusion of Nonautologous Fresh Plasma into Peripheral Vein, Percutaneous Approach (ICD-10-PCS; 2019-12-27)
PROC: 30233K1 Transfusion of Nonautologous Frozen Plasma into Peripheral Vein, Percutaneous Approach (ICD-10-PCS; 2019-12-27)
DX: U07.1 COVID-19 (principal); J96.01 Acute respiratory failure with hypoxia; J12.89 Other viral pneumonia; I48.91 Unspecified atrial fibrillation; E66.3 Overweight; Z68.32 Body mass index [BMI] 32.0-32.9, adult; Z90.49 Acquired absence of other specified parts of digestive tract
CPT/HCPCS: 36415; 36416; 36430; 71045; 80053; 80061; 82728; 83036; 83615; 83735; 84100; 84145; 84443; 84484; 85014; 85018; 85025; 85049; 85379; 85610; 85730; 86140; 86850; 86900; 86901; 87635; 93005; 96365; J1100; J1650; J3490; J7512; J8540; U0003